=== PATIENT | female | born 1960 | race Hispanic/Latino ===

== ENCOUNTER 2016-12-03 17:36 | Emergency (ER) | payer OTHER ==
[2016-12-03 17:50] VITALS: TEMP 98.5; O2SAT 98
--- NOTE | 2016-12-03 18:00 | ED PDOC ---
HPI:STROKE - Time Time: 18:00 - Historian Historian: Patient - Chief Complaint Chief Complaint: Numbness, Slurred speech - Onset Date: 12/03/16 Time: 10:00 Onset: Hours (8) - Timing Timing: Resolved - Context Context: Other (Work) - Location Location: None Locate left: Lower extremity - Radiation Radiation: None - Severity of pain Maximum severity:: None Pain Scale:: 0 Severity Current: None Pain Scale:: 0 - Associated Symptoms Associated symptoms:: Numbness - Exacerbated by Exacerbated by:: Nothing - TPA Positive for Contraindication: No Reason tPA is not being Administered: symptoms resolved out of window for TPA NIHSS Stroke Scale - Date/Time Evaluation Performed Date Performed: 12/03/16 Time Performed: 18:00 When Was NIHSS Performed: Code Stroke - How Severe is the Stroke Level of Consciousness: 0=Alert LOC to Questions: 0=Both comments correct LOC to commands: 0=Obeys both correctly Best Gaze: 0=Normal Visual: 0=No visual loss Facial: 0=Normal Motor Arm - Left: 0=No drift Motor Arm - Right: 0=No drift Motor Leg - Left: 0=No drift Motor Leg - Right: 0=No drift Limb Ataxia: 0=Absent Sensory: 0=Normal Best Language: 0=No aphasia Dysarthia: 0=Normal articulation Extinction & Inattention (Neglect): 0=Normal, no object Score: 0 rTPA Inclusion/Exclusion - Refusal of Treatment Patient Refused Treatment: No - Inclusion Criteria for Altepase Patient is 18 years or Older: Yes The Clinical Diagnosis of Ischemic Stroke That is Causing a Potentially Disabling Neurological Deficit: No Time of Onset is Well Established to be Less Than 270 Minute Before Treatment Would Begin: No Risk/Benefit Discussed With Patient/Family Member Present: No Past Medical History Reviewed: Historical Data, Nursing Documentation, Vital Signs Vital Signs: Last Vital Signs Temp 98.5 F 12/03/16 17:44 Pulse 79 12/03/16 17:44 Resp 19 12/03/16 17:44 BP 164/81 H 12/03/16 17:44 Pulse Ox 98 12/03/16 17:44 - Medical History PMH: Diabetes, HTN - Surgical History Surgical History: No Surg Hx - Family History Family History: States: No Known Family Hx - Home Medications Home Medications: Ambulatory Orders Medication Instructions Recorded Levothyroxine [Synthroid] 175 mcg PO DAILY 12/03/16 Sitagliptin Phos/Metformin HCl 1 tab PO BID 12/03/16 [Janumet 50-500 mg Tablet] Valsartan [Diovan] 320 mg PO DAILY 12/03/16 - Allergies Allergies/Adverse Reactions: Allergies Allergy/AdvReac Type Severity Reaction Status Date / Time metronidazole [From Flagyl] Allergy RASH Verified 12/03/16 17:50 pollen extracts Allergy RASH Verified 12/03/16 17:50 Review of Systems ROS Statement: Except As Marked, All Systems Reviewed And Found Negative Constitutional: Negative for: Fever Cardiovascular: Negative for: Chest Pain Gastrointestinal: Negative for: Abdominal Pain Neurological: Negative for: Seizures Physical Exam - Reviewed Nursing Documentation Reviewed: Yes Vital Signs Reviewed: Yes - Physical Exam Appears: Positive for: Well, Non-toxic, No Acute Distress Head Exam: Positive for: ATRAUMATIC Skin: Positive for: Normal Color, Warm, Dry Eye Exam: Positive for: EOMI, PERRL Neck: Positive for: Painless ROM, Supple Cardiovascular/Chest: Positive for: Regular Rate, Rhythm. Negative for: Tachycardia Respiratory: Positive for: Normal Breath Sounds. Negative for: Rales, Rhonchi, Wheezing, Respiratory Distress Gastrointestinal/Abdominal: Positive for: Soft. Negative for: Tenderness, Distended Extremity: Positive for: Normal ROM Neurologic/Psych: Positive for: Alert, middle school combination teacher II-XII (intact), Oriented, Cerebellar Tests (intact), Gait (steady). Negative for: Motor/Sensory Deficits , Aphasia, Facial Droop - Laboratory Results Result Diagrams: 12/03/16 18:30 12/03/16 18:30 - ECG O2 Sat by Pulse Oximetry: 98 Medical Decision Making Medical Decision Making: Impression: Numbness and headache Diff include TIA, migraines COde stroke CT head labs reassess 1813 CT head negative for acute findings Discussed with Dr Hartman. Per him there no criteria for inpatient work up but pt needs outpatient TIA work up. Start on ASA. Disposition - Clinical Impression Clinical Impression: TIA (transient ischemic attack) - Patient ED Disposition Is Patient to be Admitted: No Doctor Will See Patient In The: Office Counseled Patient/Family Regarding: Studies Performed, Diagnosis, Need For Followup - Disposition Referrals: Quinton Adams MD [Staff Provider] - Edilson Burton MD [Medical Doctor] - Disposition: Routine/Home Disposition Time: 18:30 Condition: GOOD Additional Instructions: Take aspiring 81 mg daily. Follow up with your PCP tomorrow. Instructions: Transient Ischemic Attack (ED) - POA Core Measure Indicators: Code Stroke
--- NOTE | 2016-12-03 18:18 | CT ---
PROCEDURE: CT scan of the brain dated 12/03/2016 HISTORY: Comparison made with prior CT scan sinuses dated 10/11/2010. In mid COMPARISON: None available. TECHNIQUE: Axial computed tomography images were obtained through the head/brain without intravenous contrast. Radiation dose: Total exam DLP = 181201 mGy-cm. This CT exam was performed using one or more of the following dose reduction techniques: Automated exposure control, adjustment of the mA and/or kV according to patient size, and/or use of iterative reconstruction technique. FINDINGS: HEMORRHAGE: No acute parenchymal, subarachnoid nor extra-axial hemorrhage. BRAIN: There is mild chronic periventricular white matter ischemic changes. No obvious large acute infarct however the possibility of a small acute infarct cannot be excluded and therefore followup MRI could be performed the urgency of which should be based on clinical correlation whether patient is eligible for tPA therapy. No obvious parenchymal nor extra-axial mass or collection. No edema or mass effect. Mild generalized volume loss with prominent ventricles and sulci. . VENTRICLES: No evidence of obstructive hydrocephalus CALVARIUM: Calvarium is intact. Note is made of a small bony excrescence arising from the inner table of the anterior parietal calvarium just dorsal to the coronal suture of uncertain etiology however could represent a localized area of hyperostosis. Possibility of an incidental tiny meningioma cannot be completely excluded. PARANASAL SINUSES: Frontal sinuses are underpneumatized/ hypoplastic. MASTOID AIR CELLS: Unremarkable as visualized. No inflammatory changes. OTHER FINDINGS: None. IMPRESSION: No acute intracranial hemorrhage. Minor chronic white matter ischemic changes on and mild volume loss. Findings discussed with Dr. Glez at approximately 6:14 p.m. with written down and read back verification See above discussion for additional incidental findings and details.
[2016-12-03 18:20] VITALS: BP 135/61; PULSE 82; RESP 18
[2016-12-03 18:40] LABS: BASO # 0.1 K/uL (0.0-0.2); BASO % 1.1 % (0.0-2.0); EOS # 0.3 K/uL (0.0-0.7); EOS % 2.1 % (0.0-4.0); HEMATOCRIT 39.4 % (34.0-47.0); LYMPH # 1.8 K/uL (1.0-4.3); LYMPH % 14.8 % (20.0-40.0); MEAN CELL VOLUME 88.6 fl (81.0-99.0); MEAN CORPUSCULAR HGB CONC 32.8 g/dL (33.0-37.0); MEAN PLATELET VOLUME 9.3 fl (7.2-11.7); MONO # 0.8 K/uL (0.0-0.8); MONO % 6.7 % (0.0-10.0); NEUT # 9.3 K/uL (1.8-7.0); NEUT % 75.3 % (50.0-75.0); RED CELL DISTRIBUTION WIDTH 14.7 % (11.5-14.5); WHITE BLOOD COUNT 12.3 K/uL (4.8-10.8)
[2016-12-03 18:55] LABS: ALB/GLOB RATIO 1.2 (1.0-2.1); ALKALINE PHOSPHATASE 122 U/L (38-126); ALT/SGPT 42 U/L (9-52); AST/SGOT 28 U/L (14-36); BILIRUBIN,TOTAL 0.4 mg/dl (0.2-1.3); BLOOD UREA NITROGEN 20 mg/dl (7-17); CALCIUM 9.6 mg/dL (8.4-10.2); CARBON DIOXIDE 25 mmol/L (22-30); CHLORIDE 104 mmol/L (98-107); CHOLESTEROL 204 mg/dL (0-199); GFR AFRICAN-AMERICAN > 60; GLUCOSE,RANDOM 133 mg/dL (65-105); SODIUM 141 mmol/l (132-148); TOTAL PROTEIN 7.6 G/DL (6.3-8.2)
[2016-12-03 19:09] LABS: PARTIAL THROMBOPLASTIN TIME 27.4 SECONDS (23.3-32.5)
--- NOTE | 2016-12-04 09:26 | CARD ---
APPROVED REPORT EKG Measurement Heart [id number] IN 190P42 [id number] <Conclusion> Normal sinus rhythm Left bundle branch block Abnormal ECG
--- NOTE | 2016-12-04 11:25 | RAD ---
HISTORY: stroke COMPARISON: 07/21/2014 FINDINGS: LUNGS: No active pulmonary disease. PLEURA: No significant pleural effusion identified, no pneumothorax apparent. CARDIOVASCULAR: Normal. OSSEOUS STRUCTURES: No significant abnormalities. VISUALIZED UPPER ABDOMEN: Normal. OTHER FINDINGS: None. IMPRESSION: No active disease.
== END 2016-12-03 19:44 | disposition home or self-care (01) ==
LOC: H.ER 17:36
DX: G45.9 Transient cerebral ischemic attack, unspecified (principal); I10 Essential (primary) hypertension; E11.9 Type 2 diabetes mellitus without complications; R51 Headache

== ENCOUNTER 2016-12-25 07:18 | Day surgery (SDC) | payer OTHER ==
[2016-12-20 08:36] VITALS: BMI 47.9
[2016-12-25] MEDS ORDERED: Bacitracin Ointment 30 GM TUBE ONE (07:39)
[2016-12-25] MEDS ORDERED: Thrombin Topical 5,000 IU Spray Kit ONE (07:39)
[2016-12-25] MEDS ORDERED: Absorbable Gelatin Sponge Size 100 ONE (07:39)
[2016-12-25] MEDS ORDERED: Morphine 1 mg/ml preservative-free Inj(Duramorph) ONE (07:39)
[2016-12-25] MEDS ORDERED: Bupivacaine 0.25%-Epinephrine 1:200,000 (30 ml) Inj ONE (07:41)
[2016-12-25] MEDS ORDERED: Bupivacaine 0.5% Inj(30mL) ONE (07:41)
[2016-12-25] MEDS ORDERED: MethylPREDNISolone Depo 40 mg/ml Inj ONE (07:41)
[2016-12-25] MEDS ORDERED: Lidocaine 1% Inj (20ml) ONE (07:41)
[2016-12-25] MEDS ORDERED: Lidocaine 2% w Epi 1:100,000 Inj IJ ONE (07:42)
[2016-12-25] MEDS ORDERED: Sodium Chloride 0.9% 20 ML IV ONE (07:54)
[2016-12-25] MEDS ORDERED: Succinylcholine 200 mg/10 ml Inj IV ONE (10:46)
[2016-12-25] MEDS ORDERED: Propofol 10 mg/ml Inj (20 ML) ONE ×2 (10:46→13:17)
[2016-12-25] MEDS ORDERED: Rocuronium 10 mg/ml (5 ml) ONE (10:46)
[2016-12-25] MEDS ORDERED: Midazolam 2 MG/2 ML VIAL ONE (10:46)
[2016-12-25] MEDS ORDERED: Lactated Ringer's 1,000 ML IV ONE (12:05)
[2016-12-25] MEDS ORDERED: Neostigmine Methylsulfate 2 MG/2 ML ML IV ONE (14:08)
[2016-12-25] MEDS ORDERED: Neostigmine Methylsulfate 3mg/3ml Syringe IV ONE (14:08)
--- NOTE | 2016-12-25 14:45 | PCM.SURG1 ---
Surgeon's Initial Post Op Note - Surgeon's Notes Surgeon: Kings Marquez MD Intellectual Property Lawyer: Hipolito Savage PA-C Type of Anesthesia: General Endo Pre-Operative Diagnosis: Right Shoulder Rotator Cuff Tear Operative Findings: See op report Post-Operative Diagnosis: Same as pre-op dx Operation Performed: Right shoulder arthroscopy. Repair of Rotator Cuff tear type I. Subacromial decompression. Biceps Tenotomy. Debriedement, Extensive Specimen/Specimens Removed: None Estimated Blood Loss: EBL {In ML}: 20 Date of Surgery/Procedure: 12/25/16 Time of Surgery/Procedure: 12:00
[2016-12-25] MEDS ORDERED: Oxycodone/Acetaminophen 5/325 mg Tab PO PRN (14:47)
[2016-12-25] MEDS ORDERED: HYDROmorphone 0.5 mg/0.5 ml ISec ONE (15:09)
--- NOTE | 2016-12-25 15:20 | PCM.ANESB1 ---
Interscalene Block - Brachial Plexus Date of Procedure: 12/25/16 Procedure Performed: Interscalene Block of Brachial Plexus Right - Procedure Interscalene Block of Brachial Plexus: This procedure was explained to the patient that it is for post-operative pain management. Consent was obtained after a thorough discussion with the patient regarding the benefits and possible complications of local anesthetic block of the Brachial Plexus at the Interscalene area. The patient was brought to the Operating Room and standard monitors were applied. Time out was held with the circulating nurse to confirm the correct surgery and appropriate block. After applying Oxygen by nasal cannula and administering IV Sedation, the patient's head was gently rotated away from the __right____operative shoulder and the anterior scalene groove was carefully palpated. The ultrasound transducer was then applied to the skin in the transverse plane and the brachial plexus was visualized lateral to the carotid artery and in between the anterior and middle scalene muscles. After identification,the anterior lateral portion of the neck was prepped with Betadine solution three times and Lidocaine 1% was injected subcutaneously for topical analgesia. At this point, a # 22 gauge Stimuplex 2 inches insulated needle was inserted into the interscalene groove and directed in a caudal and midline direction. The needle was inserted lateral to the ultrasound transducer in-plane towards the brachial plexus in a fuggmdy-dw-sagaej direction. Needle advancement was performed carefully under direct ultrasound visualization. Nerve stimulator was used and twitched of the affected extremity including the hand brachialis muscles, biceps and the deltoid was obtained at a current of MA. After repeated negative aspiration,___5__cc of____0.5% ropivacaine_, were injected and this was followed with ___15__cc of __0.5___% __Ropivacaine___ . Under ultrasound guidance the local anesthetics were observed surrounding the roots of the brachial plexus. The needle was removed intact and sterile dressing was applied. The patient had stable vital signs, was conscious and in no apparent distress. The patient tolerated the interscalene block of the bracheal plexus well with stable vital signs.
--- NOTE | 2016-12-25 15:23 | OP ---
PROCEDURE DATE: 12/25/2016 DATE OF OPERATION: 12/25/2016 ATTENDING PHYSICIAN: Kings Marquez MD ASSISTANTS: CATHLEEN Marrero PREOPERATIVE DIAGNOSES: 1. Right shoulder rotator cuff tear. 2. Calcific tendinitis. 3. Impingement. 4. Tenosynovitis. POSTOPERATIVE DIAGNOSES: 1. Right shoulder full thickness supraspinatus tear. 2. Biceps tenosynovitis. 3. Anterior capsular adhesions. 4. Bursitis. 5. Impingement. ANESTHESIA: General, interscalene block PROCEDURE: 1. Right shoulder arthroscopic rotator cuff repair. 2. Subacromial decompression with acromioplasty. 3. Anterior capsular lysis of adhesions. SPECIMENS: None. CLOSURE: Primary. FLUIDS: See anesthesia sheet ANTIBIOTICS: See anesthesia sheet COMPLICATIONS: None. INDICATIONS: After failing a course of non-operative therapy, the patient elected to undergo the abo ve procedures. In the office the risks and possible complications of the shoulder arthroscopy were d iscussed in detail with the patient. These risks include, but are not limited to: continued pain, la ck of motion, infection, vascular injury, and nerve injury including axillary nerve dysfunction, refl ex sympathetic dystrophy, compartment syndrome, limb loss, and . The patient expressed an understanding of the risks and possible benefits of the procedure, and was a lso made aware of the alternatives to surgery. An informed consent was obtained, and was checked imm ediately pre-op. Procedure 1: The patient was correctly identified in the holding area and the right shoulder was mar ked with the surgeon's initials. The patient was transported to the operating room and placed in the supine position and general anesthesia was obtained with regional interscalene block. A preoperative orthopedic examination revealed a passive range of motion of 160 degrees of forward elevation, 40 de grees of external rotation, and 130 degrees of abduction. Stability examination revealed: No instab ility was noted. Procedure 2: The patient was then placed in a beach chair position utilizing the beach chair [employer] kaylee device. The patient's head was stabilized and the indicated upper extremity was prepped and meg ped in the standard surgical fashion. The anatomic structures were outlined with a skin marker, and 1% lidocaine with epinephrine was injected into the posterior, anterior, and lateral portal areas. A #21-gauge spinal needle was placed in the glenohumeral joint from the posterior portal and 10 mL of sterile saline was injected into the glenohumeral joint. Return of fluid indicated correct needle pl acement into the joint. The needle was then withdrawn and a #11 blade was used to make a 1 cm incisi on at the posterior portal site. Next, the arthroscopic blunt trocar was inserted into the glenohume ral joint. A #21-gauge spinal needle was placed through the anterior rotator interval, and the anter ior portal was made with a #11 blade after the spinal needle was withdrawn. A 7-mm cannula was then inserted after the skin incision was made and the arthroscopic probe was then used to examine the int ernal structures of the glenohumeral joint. With the shoulder abducted and externally rotated positio n, the articular surface of the rotator cuff was visualized. The arthroscope and probe were then sw itched from posterior to anterior. The posterior labrum, posterior capsule, and biceps anchor reflect ion was then inspected with the arthroscope in the anterior portal position. Examination of the glenohumeral joint revealed: 1. Biceps tenosynovitis. 2. Anterior and posterior superior labral tear. 3. Full thickness supraspinatus tear. Using the probe the labrum was circumferentially assessed for tear. Tears were noted at the anterior and posterior superior labrum. Using the 4.0 motorized shaver and radiofrequency probe, the torn edg es of the labrum were debrided until stable rim, preventing any further propagation. Upon careful arthroscopic evaluation of biceps tendon and its anchor site at the labrum, it was noted to be highly frayed and tears not amenable to repair. Due to tissue quality and patient's age, decis ion was made to proceed with Biceps tenotomy. Using arthroscopic scissors, biceps tenotomy was succes sfully performed. The loose edges of labrum were debrided using radiofrequency probe and arthroscopic shaver. The radiofrequency device was introduced through the anterior portal and a radiofrequency anterior ca psular rotator interval lysis of adhesions was performed. The anterior capsule was released to optim ize range of motion. The radiofrequency device was used to provide hemostasis during this procedure . After the lysis of adhesions, passive range of motion measured 180 degrees of forward elevation, 6 0 degrees of external rotation, and 150 degrees of abduction. Examination of the subacromial space revealed: 1. Full thickness supraspinatus tear. 2. Bursitis. 3. Impingement. Visualization of the subacromial space was difficult due to excessive bursitis. A bursectomy was perf ormed using a combination of radiofrequency device as well as a 4.0-mm full radius motorized shaver. The soft tissue on the undersurface of the acromion was debrided utilizing the 4.0 mm full radius sha suresh and the radiofrequency device was used for hemostasis. At this point, the coracoacromial ligament was released, with the radiofrequency device, and the acromial branch of the thoracoacromial artery was coagulated with the same instrument. Sub-acromial decompression was performed with a 4.0 mm yovani lily glen using both the medial portal and the "cutting-block" precision acromioplasty technique from the posterior portal. The undersurface of the acromion was resected to a flat, smooth surface to all ow unrestricted excursion of the rotator cuff. After adequate subacromial decompression, attention was then turned to the rotator cuff tear, which w as easily visualized after adequate bursectomy had been performed. An auxiliary lateral portal was p laced 2 cm posterior to the original lateral portal, after a correct "-man's angle" was determine d using a trans-deltoid 21 gauge spinal needle. Arthroscopic soft tissue releases were performed usi ng an elevator at the coracohumeral ligament insertion and superior glenoid to free up the rotator cu ff to provide adequate excursion to support a repair to the greater tuberosity. Next, the greater tu berosity was gently debrided with a combination of the 4.0 mm straight shaver and radiofrequency ani ce, and the bone was denuded to a bleeding surface using the 4.0 mm glen. The lateral margin of the rotator cuff tear was debrided to a smooth and stable tendon surface using the 4.0 mm shaver. Two 4. 5 mm Arthrex corkscrew suture anchors were placed with the proper " man's angle" into the greater tuberosity, and a mattress suture from each anchor was passed through supraspinatus 10 mm medial to the torn edge. These anchors formed the medial row of the double row repair. The arm was abducted t o 70 degrees, and the leading edge of the cuff was drawn to its proper insertion on the greater tuber osity. The #2 FiberWire mattress sutures were tied with standard arthroscopic knot tying techniques - Prince knots and half hitches using a knot pusher. The remaining sutures were secured to the tube rosity with two 4.5 mm Push-lock absorbable anchors, which were placed with standard technique into t he lateral aspect of the greater tuberosity approximately 1 cm lateral to the medial row anchors. On e suture strand from each knot was crossed to the diagonal Push-lock anchor along with the suture str and from the corresponding anchor directly medial. This linking of the medial and lateral row formed a "suture bridge" rotator cuff repair. The ends of the remaining sutures were then cut. The should er was put through a passive ROM, and the rotator cuff repair was noted to be stable through a ROM of 130/50. No prominence of the suture knots or of rotator cuff tissue was noted to impinge during abd uction and internal rotation. The subacromial space was then irrigated with sterile saline, and closure was instituted with sutures . A dressing was placed consisting of Xeroform, 4 x 4's, ABD pads, and tape. The patient was placed in a sling with an ABD pad in the axilla. The patient was then placed in a supine position and extubated without incident. The patient was tra nsferred to the recovery room in stable condition, having tolerated the procedure well. Postoperatively, the patient will be maintained in a abduction sling. Also, provided with my rehab pr otocol, defining the restriction and sling use for 6 weeks. Follow up in ____ days. The sponge and needle count at the close of the case was correct. The attending surgeon was scrubbed and present for all the critical portions of the case, including all of the intra-articular arthrosc opic procedures. During this procedure, I was assisted by CATHLEEN Marrero, who assisted in positioning the patient on the operating room table as well as transferring the patient from the operating room table to the recovery room stretcher. In addition, CATHLEEN Marrero, assisted me during the actual operative procedure by positioning the patient's extremity to allow for easier arthroscopic access to all areas of the joint. The presence of CATHLEEN Marrero, as my operative corporate administrative assistant was medically necessar y to ensure the utmost safety of the patient in the pre-, intra-, and post-operative periods. Kings Marquez MD cc: [id number] TT: 12/25/2016 15:23:08 [facility] # [id number] sn
[2016-12-25] MEDS: HYDROmorphone 0.5 mg/0.5 ml ISec IVP PRN ×4 (15:30→17:15)
[2016-12-25 18:09] VITALS: O2SAT 95
[2016-12-25 19:17] VITALS: BP 122/67; PULSE 86; RESP 20; TEMP 97.4
== END 2016-12-25 19:45 | disposition home or self-care (01) ==
LOC: H.OPSURG 07:18
PROVIDERS: ATTEND Orthopaedic Surgery
DX: M65.811 Other synovitis and tenosynovitis, right shoulder (principal); J45.909 Unspecified asthma, uncomplicated; E11.9 Type 2 diabetes mellitus without complications; E78.5 Hyperlipidemia, unspecified; I10 Essential (primary) hypertension; F32.9 Major depressive disorder, single episode, unspecified; G47.33 Obstructive sleep apnea (adult) (pediatric); M75.21 Bicipital tendinitis, right shoulder; M75.41 Impingement syndrome of right shoulder; M75.101 Unspecified rotator cuff tear or rupture of right shoulder, not specified as traumatic

== ENCOUNTER 2018-03-17 08:30 | Emergency (ER) | payer OTHER ==
[2018-03-17 08:37] VITALS: PULSE 82; O2SAT 98; BMI 43.7
--- NOTE | 2018-03-17 08:52 | ED PDOC ---
Upper Extremity Pain/Injury Time Seen by Provider: 03/17/18 08:44 History Per: Patient Onset/Duration Of Symptoms: Days (2) Current Symptoms Are (Timing): Intermittent Episodes Severity: Mild Additional Complaint(s): S/p left carpal tunnel release. Has had pain left wrist since being back at work. Past Medical History Vital Signs: Last Vital Signs Temp 97 F L 03/17/18 08:36 Pulse 82 03/17/18 08:36 Resp 18 03/17/18 08:36 BP 186/84 H 03/17/18 08:36 Pulse Ox 98 03/17/18 08:36 - Medical History PMH: Arthritis, Depression, Diabetes, HTN, Hypercholesterolemia, Hypothyroidism , Pulmonary Embolism, Sleep Apnea (w/ BI-PAP) Denies: Chronic Kidney Disease - Surgical History Surgical History: Cholecystectomy, Tonsillectomy - Family History Family History: States: Unknown Family Hx - Home Medications Home Medications: Ambulatory Orders Medication Instructions Recorded Levothyroxine [Synthroid] 175 mcg PO DAILY 12/03/16 Sitagliptin Phos/Metformin HCl 1 tab PO BID 12/03/16 [Janumet 50-500 mg Tablet] Valsartan [Diovan] 320 mg PO DAILY 12/03/16 Aspirin [Lo-Dose Aspirin EC] 81 mg PO DAILY 12/25/16 Gabapentin [Gralise] 300 mg PO DAILY 12/25/16 Hydrochlorothiazide [Microzide] 12.5 mg PO DAILY 12/25/16 Ondansetron [Zofran Tab] 8 mg PO Q8 PRN 12/25/16 oxyCODONE/Acetaminophen [Percocet 5 - 325 mg PO Q6 PRN 12/25/16 5/325 mg Tab] traMADol [Ultram] 50 mg PO BID PRN 12/25/16 traMADol [Ultram] 50 mg PO Q8 #10 tab 03/17/18 - Allergies Allergies/Adverse Reactions: Allergies Allergy/AdvReac Type Severity Reaction Status Date / Time metronidazole [From Flagyl] Allergy RASH Verified 12/03/16 17:50 pollen extracts Allergy RASH Verified 12/03/16 17:50 Review of Systems Constitutional: Negative for: Fever Musculoskeletal: Positive for: Other (Wrist pain) Physical Exam - Physical Exam Appears: Positive for: Non-toxic, No Acute Distress Skin: Positive for: Normal Color, Warm, DRY Extremity: Positive for: Normal ROM (Left wrist. No swelling or drainage) - ECG O2 Sat by Pulse Oximetry: 98 Disposition - Clinical Impression Clinical Impression: Carpal tunnel syndrome of left wrist Counseled Patient/Family Regarding: Diagnosis, Need For Followup, Rx Given - Disposition Disposition: Routine/Home Disposition Time: 08:52 Condition: FAIR Prescriptions: traMADol [Ultram] 50 mg PO Q8 #10 tab Instructions: Carpal Tunnel Release
[2018-03-17 09:09] VITALS: TEMP 97
[2018-03-17 10:38] VITALS: BP 180/84; RESP 20
== END 2018-03-17 10:15 | disposition home or self-care (01) ==
LOC: H.ER 08:30
DX: G56.02 Carpal tunnel syndrome, left upper limb (principal)

== ENCOUNTER 2018-07-23 06:09 | Emergency (ER) | payer OTHER ==
[2018-07-23 06:09] VITALS: BMI 43.7
--- NOTE | 2018-07-23 08:26 | ED PDOC ---
HPI: Eye Injury/Pain Time Seen by Provider: 07/23/18 07:16 Chief Complaint (Nursing): Eye Problem History Per: Patient Onset/Duration Of Symptoms: Days (3) Current Symptoms Are (Timing): Still Present Severity: Moderate Associated Symptoms: Swelling. denies: Discharge From Eye Additional Complaint(s): Swelling/pustule left lower eyelid x 3 days. No discharge or change in vision. Past Medical History Vital Signs: Last Vital Signs Temp 97.6 F 07/23/18 06:17 Pulse 66 07/23/18 06:17 Resp 15 07/23/18 06:17 BP 159/80 H 07/23/18 06:17 Pulse Ox 97 07/23/18 06:17 - Medical History PMH: Arthritis, Depression, Diabetes, HTN, Hypercholesterolemia, Hypothyroidism, Pulmonary Embolism, Sleep Apnea (w/ BI-PAP) Denies: Chronic Kidney Disease - Surgical History Surgical History: Cholecystectomy, Tonsillectomy - Family History Family History: States: Unknown Family Hx - Home Medications Home Medications: Ambulatory Orders Medication Instructions Recorded Levothyroxine [Synthroid] 175 mcg PO DAILY 12/03/16 Sitagliptin Phos/Metformin HCl 1 tab PO BID 12/03/16 [Janumet 50-500 mg Tablet] Valsartan [Diovan] 320 mg PO DAILY 12/03/16 Aspirin [Lo-Dose Aspirin EC] 81 mg PO DAILY 12/25/16 Gabapentin [Gralise] 300 mg PO DAILY 12/25/16 Hydrochlorothiazide [Microzide] 12.5 mg PO DAILY 12/25/16 Ondansetron [Zofran Tab] 8 mg PO Q8 PRN 12/25/16 oxyCODONE/Acetaminophen [Percocet 5 - 325 mg PO Q6 PRN 12/25/16 5/325 mg Tab] traMADol [Ultram] 50 mg PO BID PRN 12/25/16 traMADol [Ultram] 50 mg PO Q8 #10 tab 03/17/18 Tobramycin 0.3% [Tobramycin 5 Ml] 1 drop OP TID #1 bottle 07/23/18 - Allergies Allergies/Adverse Reactions: Allergies Allergy/AdvReac Type Severity Reaction Status Date / Time pollen extracts Allergy RASH Verified 07/23/18 06:22 rabbit dander AdvReac RASH Verified 07/23/18 06:23 Review of Systems Eyes: Positive for: Pain, Eyelid Inflammation. Negative for: Vision Change Physical Exam - Physical Exam Appears: Positive for: Non-toxic, No Acute Distress Eye Exam: Negative for: Normal appearance (Swelling/pustule left lower lid), Periorbital swelling, Periorbital tenderness, Conjunctival injection - ECG O2 Sat by Pulse Oximetry: 97 Disposition - Clinical Impression Clinical Impression: Stye - Patient ED Disposition Is Patient to be Admitted: No Counseled Patient/Family Regarding: Diagnosis, Need For Followup, Rx Given - Disposition Referrals: Kip Connelly MD [Staff Provider] - Disposition: Routine/Home Disposition Time: 08:26 Condition: FAIR Prescriptions: Tobramycin 0.3% [Tobramycin 5 Ml] 1 drop OP TID #1 bottle Instructions: Ruthy (Hordeolum)
[2018-07-23 09:12] VITALS: BP 150/80; PULSE 70; RESP 16; TEMP 98; O2SAT 98
== END 2018-07-23 08:35 | disposition home or self-care (01) ==
LOC: H.ER 06:09
DX: E11.9 Type 2 diabetes mellitus without complications (principal); I10 Essential (primary) hypertension; Z79.82 Long term (current) use of aspirin; Z86.711 Personal history of pulmonary embolism; Z86.59 Personal history of other mental and behavioral disorders

== ENCOUNTER 2018-11-24 13:59 | Emergency (ER) | payer OTHER ==
[2018-11-24 13:59] VITALS: BMI 43.7
[2018-11-24 14:05] VITALS: BP 139/65; PULSE 83; RESP 16; TEMP 98; O2SAT 98
--- NOTE | 2018-11-24 14:33 | ED PDOC ---
HPI: CCC, URI, Sore Throat Time Seen by Provider: 11/24/18 14:14 Chief Complaint (Nursing): ENT Problem Chief Complaint (Provider): URI symptoms History Per: Patient History/Exam Limitations: no limitations Onset/Duration Of Symptoms: Days Current Symptoms Are (Timing): Still Present Location Of Pain: Throat Associated Symptoms: Cough. denies: Fever, Chills Additional Complaint(s): 58 year old female with diabetes presents to the ED for an evaluation of runny nose, mild dry cough and sore throat onset for 4 days. Patient is compliant with her medication but she has not checked her blood sugar. Her appetite is normal and she can tolerate PO. Otherwise, she denies fever or difficulty breathing. PMD: Edilson Burton Past Medical History Reviewed: Historical Data, Nursing Documentation, Vital Signs Vital Signs: Last Vital Signs Temp 98.0 F 11/24/18 14:00 Pulse 83 11/24/18 14:00 Resp 16 11/24/18 14:00 BP 139/65 11/24/18 14:00 Pulse Ox 98 11/24/18 14:00 - Medical History PMH: Arthritis, Depression, Diabetes, HTN, Hypercholesterolemia, Hypothyroidism, Pulmonary Embolism, Sleep Apnea (w/ BI-PAP) Denies: Chronic Kidney Disease - Surgical History Surgical History: Cholecystectomy, Tonsillectomy - Family History Family History: States: Unknown Family Hx - Home Medications Home Medications: Ambulatory Orders Medication Instructions Recorded Levothyroxine [Synthroid] 175 mcg PO DAILY 12/03/16 Sitagliptin Phos/Metformin HCl 1 tab PO BID 12/03/16 [Janumet 50-500 mg Tablet] Valsartan [Diovan] 320 mg PO DAILY 12/03/16 Aspirin [Lo-Dose Aspirin EC] 81 mg PO DAILY 12/25/16 Gabapentin [Gralise] 300 mg PO DAILY 12/25/16 Hydrochlorothiazide [Microzide] 12.5 mg PO DAILY 12/25/16 Ondansetron [Zofran Tab] 8 mg PO Q8 PRN 12/25/16 oxyCODONE/Acetaminophen [Percocet 5 - 325 mg PO Q6 PRN 12/25/16 5/325 mg Tab] traMADol [Ultram] 50 mg PO BID PRN 12/25/16 traMADol [Ultram] 50 mg PO Q8 #10 tab 03/17/18 Tobramycin 0.3% [Tobramycin 5 Ml] 1 drop OP TID #1 bottle 07/23/18 Cetirizine HCl [Zyrtec] 10 mg PO QPM #21 capsule 11/24/18 Fluticasone Propionate [Flonase 9.9 ml NS DAILY #1 spray.susp 11/24/18 Allergy Relief] - Allergies Allergies/Adverse Reactions: Allergies Allergy/AdvReac Type Severity Reaction Status Date / Time pollen extracts Allergy RASH Verified 11/24/18 14:01 rabbit dander AdvReac RASH Verified 11/24/18 14:01 Review of Systems ROS Statement: Except As Marked, All Systems Reviewed And Found Negative Constitutional: Negative for: Fever ENT: Positive for: Nose Discharge, Throat Pain Respiratory: Positive for: Cough. Negative for: Shortness of Breath Physical Exam - Reviewed Nursing Documentation Reviewed: Yes Vital Signs Reviewed: Yes - Physical Exam Appears: Positive for: Well, Non-toxic, No Acute Distress ENT: Positive for: Sinus Pain/Drainage (mild clear rhinorrhea; sinuses are erythematous, tender and swollen ), Pharyngeal Erythema (mild ). Negative for: Tonsillar Exudate, Tonsillar Swelling Cardiovascular/Chest: Positive for: Regular Rate, Rhythm. Negative for: Murmur Respiratory: Positive for: Normal Breath Sounds. Negative for: Decreased Breath Sounds, Respiratory Distress Lymphatic: Negative for: Adenopathy Neurological/Psych: Positive for: Awake, Alert, Normal Tone, Oriented (x3) - ECG O2 Sat by Pulse Oximetry: 98 (RA) Pulse Ox Interpretation: Normal Medical Decision Making Medical Decision Making: Time: 1419 Impression: URI symptoms Differential Diagnosis: strep, flu, allergies Plan: Glucose, POC, Blood Influenza A B Rapid Strep Group A Antigen Revaluation flu/strep neg fingerstick 153 Pt. well appearing, nontoxic, will d/c home with allergy rx Scribe Attestation: Documented by Zayda Farfan, acting as a scribe for Shawna Juarez PA-C. Provider Scribe Attestation: All medical record entries made by the Scribe were at my direction and personally dictated by me. I have reviewed the chart and agree that the record accurately reflects my personal performance of the history, physical exam, medical decision making, and the department course for this patient. I have also personally directed, reviewed, and agree with the discharge instructions and disposition. Disposition - Clinical Impression Clinical Impression: Seasonal allergies - Patient ED Disposition Is Patient to be Admitted: No - Disposition Disposition: Routine/Home Disposition Time: 16:11 Condition: STABLE Prescriptions: Cetirizine HCl [Zyrtec] 10 mg PO QPM #21 capsule Fluticasone Propionate [Flonase Allergy Relief] 9.9 ml NS DAILY #1 spray.susp Instructions: Seasonal Allergies in Adults, Seasonal Allergies (DC) Forms: Yasuu (Setswana)
== END 2018-11-24 16:17 | disposition home or self-care (01) ==
LOC: H.ER 13:59
DX: J30.2 Other seasonal allergic rhinitis (principal); Z86.59 Personal history of other mental and behavioral disorders; E11.9 Type 2 diabetes mellitus without complications; E03.9 Hypothyroidism, unspecified; E78.00 Pure hypercholesterolemia, unspecified; I10 Essential (primary) hypertension; Z79.82 Long term (current) use of aspirin; Z86.711 Personal history of pulmonary embolism